=== PATIENT | female | born 1940 | race Caucasian/White ===

== ENCOUNTER 2016-12-17 19:14 | Emergency (ER) | payer MEDICARE, BC ==
[2016-12-17] MEDS ORDERED: ONDANSETRON HCL IV 4 MG/2 ML VIAL IVP ONE (19:18)
--- NOTE | 2016-12-17 19:26 | Emergency Department Record ---
History of Present Illness - General Chief complaint: Vomiting Stated complaint: VOMITING Time Seen by Provider: 12/17/16 19:18 Source: Patient Mode of Arrival: Ambulatory Limitations: No limitations - History of Present Illness Initial comments: 76 yo female presents to ED with a CC of nausea and vomiting symptoms throughout the day. Patient reports intermittent symptoms since November 09, was recent seen and evaluated at [facility] on 12/12/16 for similar symptoms. Patient denies fevers, chills, or urinary symptoms. Patient reports previous appendectomy, denies other abdominal surgeries. Patient denies chest pain or difficulty in breathing symptoms. MD complaint: Nausea, Vomiting Onset/Timin -: Month(s) Associated Abdominal Pain: Yes Location: Diffuse Radiation: None Severity: Moderate Consistency: Intermittent Improves with: None Worsens with: Eating Associated Symptoms: Denies other symptoms - Related Data Previous Rx's Medication Instructions Recorded Cephalexin [Keflex] 500 mg PO TID #21 cap 12/17/16 Ondansetron [Zofran Odt] 4 mg PO Q6H PRN #20 tab.rapdis 12/17/16 Allergies Allergy/AdvReac Type Severity Reaction Status Date / Time doxycycline Allergy Intermediate FLUSHING, Verified 11/13/14 15:03 HIVES niacin Allergy Intermediate FLUSHING, Verified 11/13/14 15:03 HIVES Review of Systems Constitutional: Denies: Chills, Fever, Malaise, Night sweats Eyes: Denies: Eye discharge, Eye pain ENT: Denies: Congestion, Ear pain Respiratory: Denies: Cough, Dyspnea Cardiovascular: Denies: Chest pain, Dyspnea on exertion Endocrine: Denies: Fatigue, Heat or cold intolerance Gastrointestinal: Reports: Abdominal pain, Nausea, Vomiting Genitourinary: Denies: Incontinence, Retention Musculoskeletal: Denies: Arthralgia, Back pain, Gout, Joint swelling Skin: Denies: Bruising, Change in color Neurological: Denies: Abnormal gait, Confusion, Headache, Seizure Psychiatric: Denies: Anxiety Hematological/Lymphatic: Denies: Anemia, Blood Clots Physical Exam - General General Appearance: Alert, Oriented x3, Cooperative, Moderate distress Limitations: No limitations - Head Head exam: Atraumatic, Normocephalic, Normal inspection Head exam detail: negative: Abrasion, Contusion, Spence's sign, General tenderness, Hematoma, Laceration - Eye Eye exam: Normal appearance. negative: Conjunctival injection, Periorbital swelling, Periorbital tenderness, Scleral icterus - ENT Ear exam: negative: Auricular hematoma, Auricular trauma Nasal Exam: negative: Active bleeding, Discharge, Dried blood, Foreign body Mouth exam: negative: Drooling, Laceration, Tongue elevation - Neck Neck exam: Normal inspection. negative: Meningismus, Tenderness - Respiratory Respiratory exam: Normal lung sounds bilaterally. negative: Rales, Respiratory distress, Rhonchi, Stridor - Cardiovascular Cardiovascular Exam: Normal rhythm, Normal heart sounds, Tachycardia - GI/Abdominal GI/Abdominal exam: Soft, Other (beign abdominal examination). negative: Rebound , Rigid, Tenderness - Rectal Rectal exam: Deferred - exam: Deferred - Extremities Extremities exam: Normal inspection. negative: Calf tenderness, Pedal edema, Tenderness - Back Back exam: Denies: CVA tenderness (R), CVA tenderness (L) - Neurological Neurological exam: Alert, Normal gait, Oriented X3 - Psychiatric Psychiatric exam: Normal affect, Normal mood - Skin Skin exam: Normal color. negative: Abrasion Type of lesion: negative: abrasion Course Vital Signs 12/17/16 19:22 Temperature 97.5 F L Pulse Rate [ 120 H Pulse Ox Probe] Respiratory 24 Rate Blood Pressure 149/108 [Left Arm] Pulse Ox 97 - Reevaluation(s) Reevaluation #1: 12/17/16 19:25 [facility] records reviewed: CT Abdomen and Pelvis 12/12/16: No acute intra-abdominal or pelvic process. Reevaluation #2: 12/17/16 19:57 Labs reviewed, Lactic Acid 3.2, labs are otherwise grossly unremarkable for an acute process. Reevaluation #3: 12/17/16 20:20 UA reviewed, mild contamination however 3+ bacteria and Moderate LE, will initiate treatment for possible pyelonephritis with Keflex. Reevaluation #4: 12/17/16 20:52 Patient reassessed and updated on all results, patient has not vomited in the ED and reports that she is feeling better. Patient appears stable for discharge at this time. Medical Decision Making - Lab Data Result diagrams: 12/17/16 19:25 12/17/16 19:25 Disposition Disposition: Discharge Clinical Impression: UTI (urinary tract infection) Qualifiers: Urinary tract infection type: acute cystitis Hematuria presence: with hematuria Qualified Code(s): N30.01 - Acute cystitis with hematuria Nausea & vomiting Qualifiers: Vomiting type: unspecified Vomiting Intractability: unspecified Qualified Code( s): R11.2 - Nausea with vomiting, unspecified Disposition: Home, Self-Care Condition: (2) Stable Instructions: Acute Nausea and Vomiting (ED) Additional Instructions: Return to ED if your symptoms worsen or if you have any concerns. Zofran and Keflex as directed. Follow-up with your family doctor in 1-3 days as directed. Prescriptions: Cephalexin [Keflex] 500 mg PO TID #21 cap Ondansetron [Zofran Odt] 4 mg PO Q6H PRN #20 tab.rapdis PRN Reason: Nausea/Vomiting Forms: Patient Portal Access Time of Disposition: 20:25 Quality - Quality Measures Quality Measures: N/A - Blood Pressure Screening Does Patient Have Any of the Following: No Blood Pressure Classification: Hypertensive Reading Systolic Measurement: 189 Diastolic Measurement: 114 Screening for High Blood Pressure: < First Hypertensive BP, F/U Documented > [ G8950] First Hypertensive Follow-up Interventions: Referral to alternative/primary care provider.
[2016-12-17] MEDS: 0.9 % SODIUM CHLORIDE 1000ML 1,000 ML IV SCH ×2 (19:32→20:27)
[2016-12-17 19:38] LABS: BASO % 0.5 % (0-6); EOS % 1.6 % (0-6); GRAN % 63.1 % (47-80); HEMATOCRIT 44.6 % (35.0-47.0); HEMOGLOBIN 14.9 gm/dl (11.6-16.0); LYMPH % 23.4 % (16-45); MEAN CELL VOLUME 88.5 fl (81-97); MEAN CORPUSCULAR HEMOGLOBIN 29.6 pg (27-33); MEAN CORPUSCULAR HGB CONC 33.4 g/dl (32-36); MEAN PLATELET VOLUME 8.5 fl (7.4-10.4); MONO % 11.4 % (0-9); PLATELET COUNT 213 K/uL (130-400); RED BLOOD COUNT 5.04 M/uL (3.80-5.40); RED CELL DISTRIBUTION WIDTH 13.2 % (11.5-14.5); WHITE BLOOD COUNT W/O DIFF 6.3 K/uL (4.2-12.2)
[2016-12-17 19:46] LABS: ALB/GLOB RATIO 1.5 (1.1-1.8); ALBUMIN 4.8 gm/dL (3.5-5.0); ANION GAP 15.2 (7-16); BILIRUBIN,TOTAL 1.38 mg/dL (0.2-1.3); CARBON DIOXIDE 30.8 mmol/L (22-30); TOTAL PROTEIN 8.1 gm/dL (6.3-8.2)
[2016-12-17 19:56] LABS: URINE APPEARANCE CLEAR; URINE BILIRUBIN SMALL (NEGATIVE); URINE BLOOD NEGATIVE (NEGATIVE); URINE COLOR YELLOW; URINE GLUCOSE (UA) NEGATIVE (NEGATIVE); URINE KETONE TRACE (NEGATIVE); URINE LEUKOCYTE ESTERASE MODERATE (NEGATIVE); URINE NITRITE NEGATIVE (NEGATIVE); URINE UROBILINOGEN 0.2 E.U./dL (0.20 - 1.00)
[2016-12-17] MEDS ORDERED: DIPHENHYDRAMINE HCL IV 50 MG/ML VIAL IVP ONE (19:56)
[2016-12-17] MEDS ORDERED: METOCLOPRAMIDE HCL 10 MG/2 ML VIAL IVP ONE (19:56)
[2016-12-17] MEDS ORDERED: 0.9 % SODIUM CHLORIDE 1000ML 1,000 ML IV SCH (20:00)
[2016-12-17 20:09] LABS: URINE BACTERIA 3+; URINE MUCUS LIGHT
[2016-12-17] MEDS ORDERED: CEPHALEXIN 500 MG CAPSULE PO STA (20:20)
== END 2016-12-17 21:14 | disposition home or self-care (01) ==
LOC: ER 19:14
DX: N30.01 Acute cystitis with hematuria (principal); R11.2 Nausea with vomiting, unspecified
CPT/HCPCS: 99284 ×2; 96374; 96375; 96361; 83605; 83690; 85025; 80053; 81001; J2405; J1200; J2765; J7030

== ENCOUNTER 2017-03-31 16:04 | Emergency (ER) | payer MEDICARE, BC ==
[2017-03-31] MEDS ORDERED: CLONIDINE HCL 0.1 MG TABLET PO ONE (17:33)
[2017-03-31 17:37] LABS: BASO % 0.2 % (0-6); GRAN % 73.7 % (47-80); HEMATOCRIT 37.5 % (35.0-47.0); HEMOGLOBIN 11.9 gm/dl (11.6-16.0); LYMPH % 17.5 % (16-45); MEAN CELL VOLUME 93.8 fl (81-97); MEAN CORPUSCULAR HEMOGLOBIN 29.8 pg (27-33); MEAN CORPUSCULAR HGB CONC 31.7 g/dl (32-36); MEAN PLATELET VOLUME 8.8 fl (7.4-10.4); MONO % 7.6 % (0-9); PLATELET COUNT 115 K/uL (130-400); RED CELL DISTRIBUTION WIDTH 13.1 % (11.5-14.5)
[2017-03-31 17:51] LABS: BLOOD UREA NITROGEN 18 mg/dL (8-23); CREATININE 0.5 mg/dL (0.5-0.9); EST GLOMERULAR FILTRATION RATE > 60 mL/min; TOTAL PROTEIN 6.5 g/dL (6.6-8.7)
[2017-03-31 17:53] LABS: GLUCOSE,RANDOM 121 mg/dL (74-109)
[2017-03-31 17:56] LABS: ALB/GLOB RATIO 1.7 (1.1-1.8); ALBUMIN 4.1 g/dL (4.0-5.0); ALKALINE PHOSPHATASE 65 U/L (35-104); ALT/SGPT 17 U/L (<33); AST/SGOT 19 U/L (10.0-35.0)
[2017-03-31] MEDS ORDERED: KETOROLAC 30 MG/ML VIAL IVP ONE (17:59)
--- NOTE | 2017-03-31 18:09 | Emergency Department Record ---
History of Present Illness - General Chief complaint: Pain Stated complaint: PAIN FROM RT SIDE OF RIBS TO BACK Time Seen by Provider: 03/31/17 17:05 Source: Patient Mode of Arrival: Ambulatory Limitations: No limitations - History of Present Illness Initial comments: pt has significant back pain that wraps around to her chest. she denies injury. she states pain has steadily increased all week and that she cannot get comfortable. MD Complaint: Neck Pain, Other Onset/Timin -: Week(s) History of Same: No Radiation: Other Severity scale (1-10): 7 Quality: Sharp Consistency: Constant Improves with: Nothing Worsens with: Nothing Associated Symptoms: Chest pain, Shortness of breath - Related Data Home Medications Medication Instructions Recorded Confirmed Last Taken Atorvastatin Calcium 40 mg PO QHS 03/31/17 03/31/17 03/30/17 Cyclobenzaprine HCl [Flexeril] 10 mg PO QHS 03/31/17 03/31/17 Unknown Losartan Potassium [Losartan 50 mg PO DAILY 03/31/17 03/31/17 03/31/17 Potassium] Previous Rx's Medication Instructions Recorded Ondansetron [Zofran Odt] 4 mg PO Q6H PRN #20 tab.rapdis 12/17/16 Gabapentin [Neurontin] 100 mg PO Q12HR #20 capsule 03/31/17 Allergies Allergy/AdvReac Type Severity Reaction Status Date / Time doxycycline Allergy Intermediate FLUSHING, Verified 03/31/17 16:39 HIVES niacin Allergy Intermediate FLUSHING, Verified 03/31/17 16:39 HIVES Travel Screening - Travel/Exposure Within Last 30 Days Have you traveled within the last 30 days?: No Review of Systems Reviewed: No additional complaints except as noted below Constitutional: Reports: As per HPI. Denies: Chills, Fever, Malaise, Night sweats, Weakness, Weight change Eyes: Reports: As per HPI. Denies: Eye discharge, Eye pain, Photophobia, Vision change ENT: Reports: As per HPI. Denies: Congestion, Dental pain, Ear pain, Epistaxis , Hearing loss, Throat pain Respiratory: Reports: As per HPI. Denies: Cough, Dyspnea, Hemoptysis, Stridor, Wheezes Cardiovascular: Reports: As per HPI. Denies: Arrhythmia, Chest pain, Dyspnea on exertion, Edema, Murmurs, Orthopnea, Palpitations, Paroxysmal nocturnal dyspnea, Rheumatic Fever, Syncope Endocrine: Reports: As per HPI. Denies: Fatigue, Heat or cold intolerance, Polydipsia, Polyuria Gastrointestinal: Reports: As per HPI. Denies: Abdominal pain, Constipation, Diarrhea, Hematemesis, Hematochezia, Melena, Nausea, Vomiting Genitourinary: Reports: As per HPI. Denies: Abnormal menses, Discharge, Dyspareunia, Dysuria, Frequency, Hematuria, Incontinence, Retention, Urgency Musculoskeletal: Reports: As per HPI. Denies: Arthralgia, Back pain, Gout, Joint swelling, Myalgia, Neck pain Skin: Reports: As per HPI. Denies: Bruising, Change in color, Change in hair/ nails, Lesions, Pruritus, Rash Neurological: Reports: As per HPI. Denies: Abnormal gait, Confusion, Headache, Numbness, Paresthesias, Seizure, Tingling, Tremors, Vertigo, Weakness Psychiatric: Reports: As per HPI. Denies: Anxiety, Auditory hallucinations, Depression, Homicidal thoughts, Suicidal thoughts, Visual hallucinations Hematological/Lymphatic: Reports: As per HPI. Denies: Anemia, Blood Clots, Easy bleeding, Easy bruising, Swollen glands Past Medical History - SOCIAL HISTORY Smoking Status: Never smoker Alcohol Use: Rare Drug Use: None - RESPIRATORY Hx Respiratory Disorders: Yes Hx Asthma: Yes Hx COPD: Yes - CARDIOVASCULAR Hx Cardio Disorders: Yes Hx Hypertension: Yes Comment:: high cholesterol - NEURO Hx Neuro Disorders: Yes Hx Headaches: Yes - GI Hx GI Disorders: Yes Comment:: gastritis - Hx Genitourinary Disorders: No - ENDOCRINE Hx Endocrine Disorders: No - MUSCULOSKELETAL Hx Musculoskeletal Disorders: Yes Hx Arthritis: Yes - PSYCH Hx Psych Problems: No - HEMATOLOGY/ONCOLOGY Hx Hematology/Oncology Disorders: No Family Medical History Any Significant Family History?: No Physical Exam - General General Appearance: Alert, Oriented x3, Cooperative, Mild distress - Head Head exam: Normal inspection - Eye Eye exam: Normal appearance, PERRL, EOMI Pupils: Normal accommodation - ENT ENT exam: Normal exam, Mucous membranes moist, Normal external ear exam, Normal orophraynx Ear exam: Normal external inspection. negative: External canal tenderness Nasal Exam: Normal inspection. negative: Discharge, Sinus tenderness Mouth exam: Normal external inspection, Tongue normal Teeth exam: Normal inspection. negative: Dental caries Throat exam: Normal inspection. negative: Tonsillar erythema, Tonsillar exudate - Neck Neck exam: Normal inspection, Full ROM. negative: Tenderness - Respiratory Respiratory exam: Normal lung sounds bilaterally. negative: Respiratory distress - Cardiovascular Cardiovascular Exam: Regular rate, Normal rhythm, Normal heart sounds - GI/Abdominal GI/Abdominal exam: Soft, Normal bowel sounds. negative: Tenderness - Rectal Rectal exam: Deferred - exam: Deferred - Extremities Extremities exam: Normal inspection, Full ROM, Normal capillary refill. negative: Tenderness - Back Back exam: Reports: Full ROM, Tenderness. Denies: Muscle spasm, Rash noted - Neurological Neurological exam: Alert, CN II-XII intact, Normal gait, Oriented X3 - Psychiatric Psychiatric exam: Normal affect, Normal mood - Skin Skin exam: Dry, Intact, Normal color, Warm Course Vital Signs 03/31/17 03/31/17 16:35 17:32 Temperature 97.6 F Pulse Rate 83 Pulse Rate [ 77 Pulse Ox Probe] Respiratory 16 20 Rate Blood Pressure 188/125 Blood Pressure 213/116 [Left Arm] Pulse Ox 95 96 Medical Decision Making - Lab Data Result diagrams: 03/31/17 17:31 03/31/17 17:31 Lab Results 03/31/17 03/31/17 03/31/17 Range/Units 17:31 17:31 17:31 WBC 5.0 (4.2-12.2) K/uL RBC 4.00 (3.80-5.40) M/uL Hgb 11.9 (11.6-16.0) gm/dl Hct 37.5 (35.0-47.0) % MCV 93.8 (81-97) fl MCH 29.8 (27-33) pg MCHC 31.7 L (32-36) g/dl RDW 13.1 (11.5-14.5) % Plt Count 115 L (130-400) K/uL MPV 8.8 (7.4-10.4) fl Gran % 73.7 (47-80) % Lymphocytes % 17.5 (16-45) % Monocytes % 7.6 (0-9) % Eosinophils % 1.0 (0-6) % Basophils % 0.2 (0-6) % D-Dimer 0.33 (0-0.59) mg/L FEU Sodium 140 (136-145) mmol/L Potassium 3.7 (3.4-4.5) mmol/L Chloride 98 (98-107) mmol/L Carbon Dioxide 32.0 H (22-29) mmol/L Anion Gap 10.0 (7-16) BUN 18 (8-23) mg/dL Creatinine 0.5 (0.5-0.9) mg/dL Estimated GFR > 60 mL/min Random Glucose 121 H (74-109) mg/dL Calcium 9.5 (8.8-10.2) mg/dL Total Bilirubin 0.70 (0.2-1.0) mg/dL AST 19 (10.0-35.0) U/L ALT 17 (<33) U/L Alkaline Phosphatase 65 (35-104) U/L Troponin T < 0.010 (0-0.010) ng/mL Total Protein 6.5 L (6.6-8.7) g/dL Albumin 4.1 (4.0-5.0) g/dL Globulin 2.4 (1.4-4.8) gm/dL Albumin/Globulin Ratio 1.7 (1.1-1.8) Disposition Disposition: Discharge Clinical Impression: Thoracic back pain Qualifiers: Chronicity: acute Back pain laterality: bilateral Qualified Code(s): M54.6 - Pain in thoracic spine Hypertension Qualifiers: Hypertension type: essential hypertension Qualified Code(s): I10 - Essential ( primary) hypertension Disposition: Home, Self-Care Condition: (1) Good Instructions: Thoracic Pain (ED) Additional Instructions: follow up with family doctor. return sooner if worse. recheck blood pressure tomorrow Prescriptions: Gabapentin [Neurontin] 100 mg PO Q12HR #20 capsule Forms: Patient Portal Access Quality - Quality Measures Quality Measures: N/A - Blood Pressure Screening Does Patient Have Any of the Following: No Blood Pressure Classification: Hypertensive Reading Systolic Measurement: 188 Diastolic Measurement: 125 Screening for High Blood Pressure: < First Hypertensive BP, F/U Documented > [ G8950] First Hypertensive Follow-up Interventions: Follow-up with rescreen GT 1 day and LT 4 weeks. Second Hypertensive Follow-up Interventions: Referral to alternative/primary care provider.
--- NOTE | 2017-04-01 20:24 | RADIOLOGY REPORT ---
EXAM: CHEST 2 VIEWS HISTORY: BACK PAIN RADIATING TO MID RIBS BILATERALLY, ACUTE. COMPARISON: None. TECHNIQUE: Two-view chest. FINDINGS: The lungs are clear. Cardiac silhouette is mildly enlarged. Diaphragm is unremarkable. Mild to moderate dextroconvex scoliosis of the thoracic spine. IMPRESSION: CARDIOMEGALY. NO ACUTE INTRATHORACIC PROCESS. JOB NUMBER: [id number] [facility]TDD
--- NOTE | 2017-04-01 20:28 | RADIOLOGY REPORT ---
EXAM: THORACIC SPINE HISTORY: ACUTE MID BACK PAIN RADIATING TO BOTH SIDES OF THE CHEST. COMPARISON: Chest x-ray same day. Thoracic spine radiograph 07/12/16. TECHNIQUE: Four-view thoracic spine. FINDINGS: Osteopenia. Mild to moderate dextroconvex scoliosis of the thoracic spine. No fracture. Mild disc disease throughout. IMPRESSION: 1. NO ACUTE PROCESS OF THE THORACIC SPINE WITH NO CHANGE. 2. OSTEOPENIA. 3. MILD TO MODERATE SCOLIOSIS OF THE THORACIC SPINE. JOB NUMBER: [id number] [facility]
== END 2017-03-31 19:48 | disposition home or self-care (01) ==
LOC: ER 16:04
DX: M54.6 Pain in thoracic spine (principal); R07.81 Pleurodynia; J44.9 Chronic obstructive pulmonary disease, unspecified; M54.2 Cervicalgia; R06.02 Shortness of breath; I10 Essential (primary) hypertension
CPT/HCPCS: 99284 ×2; 96374; 85025; 80053; 84484; 85379; 71020; 72072; J1885

== ENCOUNTER 2017-04-26 07:06 | Day surgery (SDC) | payer MEDICARE, BC ==
[2017-04-26] MEDS ORDERED: BUPIVACAINE 0.25% MPF 30ML VIAL IVP ONE (07:07)
[2017-04-26] MEDS ORDERED: 0.9 % SODIUM CHLORIDE 10 ML VIAL IVP ONE (07:07)
[2017-04-26] MEDS ORDERED: PROPOFOL 10 MG/ML VIAL IV ONE (07:07)
[2017-04-26] MEDS ORDERED: BUPIVACAINE 0.5% (5MG/ML) PF 30ML VIAL IVP ONE (07:07)
[2017-04-26] MEDS ORDERED: MIDAZOLAM HCL 2MG/2ML VIAL IV ONE (07:07)
[2017-04-26] MEDS ORDERED: FENTANYL PF 100MCG/2ML VIAL IV ONE (07:07)
[2017-04-26] MEDS ORDERED: LIDOCAINE 1% W/EPI 1:200,000 MPF 30ML SQ ONE (07:07)
[2017-04-26] MEDS ORDERED: BUPIVACAINE 0.75% W/EPI MPF 30ML VIAL IVP ONE (07:07)
[2017-04-26] MEDS ORDERED: DEXAMETHASONE PRESERVATIVE FREE 10MG/ML VIAL IV ONE (07:07)
[2017-04-26] MEDS ORDERED: LIDOCAINE 2% MDV (20MG/ML) 20ML VIAL IV ONE (07:07)
[2017-04-26] MEDS ORDERED: HYDROCODONE/APAP 7.5/325MG TABLET PO ONE (07:07)
--- NOTE | 2017-04-26 15:21 | Operative Note - [place] ---
DATE OF SURGERY: 04/26/17 PREOPERATIVE DIAGNOSES: 1. CERVICAL RADICULITIS, ICD-10 CODE = M54.13. 2. 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 OPERATION: 1. FLUOROSCOPICALLY-GUIDED CERVICAL EPIDURAL INJECTION AT C6-7. 2. INFILTRATIONAL BLOCK BILATERAL GREATER OCCIPITAL NERVES. SURGEON: BRITTANY RICHARDS D.O. ANESTHESIA: LOCAL SEDATION. ANESTHESIA PROVIDER: KILO CHUN C.R.N.A. INDICATION: This patient presents with pain, which is head and neck. Examination shows tenderness of the cervical spine. Range of motion does cause pain moving into the shoulder bilaterally. There is also tenderness along the suboccipital. Diagnostic studies show a 4-5, 5-6, and 6-7 disc space abnormality. PROCEDURE: Intravenous line, vital sign monitoring, IV sedation, prepped and draped with sterile technique. The epidural interspace at 4-5 and 5-6 could not be identified. 6-7 marked, infiltrated, and an #18-gauge Tuohy needle with loss- of-resistance. 5 mL of 0.125% Marcaine with Dexamethasone injected. Suboccipital rim prepped then using a 25-gauge needle, the greater occipital was blocked, first left then right, with 0.5% Marcaine and Dexamethasone. All areas cleaned, topical antibiotic, and sterile dressing was applied. We will monitor and evaluate. cc: Dr. Jose G Li JOB NUMBER: [id number] [facility]TDD
== END 2017-04-26 09:30 | disposition home or self-care (01) ==
LOC: SUR 07:06
PROVIDERS: ATTEND Pain Medicine Interventional Pain Medicine
DX: M54.13 Radiculopathy, cervicothoracic region (principal); M54.81 Occipital neuralgia; I10 Essential (primary) hypertension; E78.00 Pure hypercholesterolemia, unspecified
CPT/HCPCS: 62321; 64405; 01992; J1100; J3010; J3490

== ENCOUNTER 2017-06-03 18:41 | Emergency (ER) | payer MEDICARE, BC ==
[2017-06-03] MEDS ORDERED: CLONIDINE HCL 0.1 MG TABLET PO ONE (19:11)
--- NOTE | 2017-06-03 19:15 | Emergency Department Record ---
History of Present Illness - General Chief Complaint: Hypertension Stated Complaint: HIGH BP Time Seen by Provider: 06/03/17 19:01 Source: Patient Mode of Arrival: Ambulatory Limitations: No limitations - History of Present Illness Initial Comments: 77 yo female presents to ED for evaluation of persistently elevated blood pressure x 5 months. Patient reports seeing her PCP 3 days ago for lower extremity edema, she was taken off Losartan and Clonidine and started on Triamterene for her BP/edema symptoms. Patient denies chest pain, focal weakness, or numbness/tingling, but does report that she feels lightheaded on examination. MD Complaint: Dizziness Onset/Timin -: Month(s) Timing: Unsure Description: Lightheadedness History of Same: Yes History of Trauma: No Severity: Mild Improves With: Nothing Worsens With: Nothing - [place] Coma Scale Eye Response: (4) Open spontaneously Motor Response: (6) Obeys commands Verbal Response: (5) Oriented Ashley Total: 15 - Related Data Home Medications Medication Instructions Recorded Confirmed Last Taken Clonidine HCl [Clonidine HCl] 0.1 mg PO ASDIR 06/03/17 06/03/17 06/03/17 Triamterene/Hydrochlorothiazid 1 tab PO DAILY 06/03/17 06/03/17 06/03/17 [Triamterene-Hctz 75-50 mg Tab] Previous Rx's Medication Instructions Recorded Ondansetron [Zofran Odt] 4 mg PO Q6H PRN #20 tab.rapdis 12/17/16 Gabapentin [Neurontin] 100 mg PO Q12HR #20 capsule 03/31/17 Allergies Allergy/AdvReac Type Severity Reaction Status Date / Time doxycycline Allergy Intermediate FLUSHING, Verified 06/03/17 18:46 HIVES niacin Allergy Intermediate FLUSHING, Verified 06/03/17 18:46 HIVES Travel Screening - Travel/Exposure Within Last 30 Days Have you traveled within the last 30 days?: No - Travel/Exposure Within Last Year Have you traveled outside the [place] in the last year?: No - Additonal Travel Details Have you been exposed to anyone with a communicable illness?: No - Travel Symptoms Symptom Screening: None Review of Systems Constitutional: Denies: Chills, Fever, Malaise, Night sweats Eyes: Denies: Eye discharge, Eye pain ENT: Denies: Congestion, Ear pain, Epistaxis Respiratory: Denies: Cough, Dyspnea Cardiovascular: Denies: Chest pain, Dyspnea on exertion Endocrine: Denies: Fatigue, Heat or cold intolerance Gastrointestinal: Denies: Abdominal pain, Nausea, Vomiting Genitourinary: Denies: Incontinence, Retention Musculoskeletal: Denies: Arthralgia, Back pain, Gout, Joint swelling Skin: Denies: Bruising, Change in color Neurological: Reports: Headache, Vertigo. Denies: Abnormal gait, Confusion, Tingling Psychiatric: Denies: Anxiety Hematological/Lymphatic: Denies: Anemia, Blood Clots Past Medical History - SOCIAL HISTORY Smoking Status: Never smoker Alcohol Use: Rare Drug Use: None - RESPIRATORY Hx Respiratory Disorders: Yes Hx Dyspnea: Yes Hx Sleep Apnea: Yes Hx of CPAP: No - CARDIOVASCULAR Hx Cardio Disorders: Yes Hx Hypertension: Yes (on meds fair control) Comment:: high cholesterol. enlarged heart - NEURO Hx Neuro Disorders: Yes Hx Headaches: Yes (daily related neck problems) - GI Hx GI Disorders: Yes Hx Reflux: Yes - Hx Genitourinary Disorders: Yes Hx Bladder Problem: Yes (leaking wears a pad) - ENDOCRINE Hx Endocrine Disorders: No - MUSCULOSKELETAL Hx Musculoskeletal Disorders: Yes Hx Back Injury: Yes Hx Fibromyalgia: Yes - PSYCH Hx Psych Problems: Yes Hx Depression: Yes - HEMATOLOGY/ONCOLOGY Hx Hematology/Oncology Disorders: Yes Hx Bruising: Yes Hx Blood Transfusions: Yes Family Medical History Any Significant Family History?: Yes Hx Alcohol Use: Father, Mother, Brother/Sister Hx Anxiety: Children Hx Cancer: Grandparents Hx Depression: Mother Hx Diabetes: Father Hx HTN: Father, Mother, Grandparents Hx Kidney Disease: Brother/Sister, Grandparents Hx Liver Disease: Mother Physical Exam - General General Appearance: Alert, Oriented x3, Cooperative, Mild distress Limitations: No limitations - Head Head exam: Atraumatic, Normocephalic, Normal inspection Head exam detail: negative: Abrasion, Contusion, Spence's sign, General tenderness, Hematoma, Laceration - Eye Eye exam: Normal appearance. negative: Conjunctival injection, Periorbital swelling, Periorbital tenderness, Scleral icterus - ENT Ear exam: negative: Auricular hematoma, Auricular trauma Nasal Exam: negative: Active bleeding, Discharge, Dried blood Mouth exam: negative: Drooling, Laceration, Tongue elevation - Neck Neck exam: Normal inspection. negative: Meningismus, Tenderness - Respiratory Respiratory exam: Normal lung sounds bilaterally. negative: Respiratory distress, Rhonchi, Stridor, Wheezes - Cardiovascular Cardiovascular Exam: Regular rate, Normal rhythm, Normal heart sounds - GI/Abdominal GI/Abdominal exam: Soft. negative: Rebound, Rigid, Tenderness - Rectal Rectal exam: Deferred - exam: Deferred - Extremities Extremities exam: Normal inspection. negative: Calf tenderness, Pedal edema, Tenderness - Back Back exam: Denies: CVA tenderness (R), CVA tenderness (L) - Neurological Neurological exam: Alert, CN II-XII intact, Oriented X3. negative: Motor sensory deficit - Psychiatric Psychiatric exam: Anxious - Skin Skin exam: Normal color. negative: Abrasion Type of lesion: negative: abrasion Course Vital Signs 06/03/17 06/03/17 18:51 18:56 Temperature 97.8 F 97.8 F Pulse Rate [ 92 H Pulse Ox Probe] Respiratory 20 20 Rate Blood Pressure 215/134 [Left Arm] Pulse Ox 97 97 - Reevaluation(s) Reevaluation #1: 06/03/17 19:15 Patient was seen and examined, will obtain EKG/Laboratory studies, restart Clonidine in the ED and re-evaluate. Reevaluation #2: 06/03/17 19:26 EKG: NSR 82 Normal axis, normal intervals No acute ST-T wave changes are present Reevaluation #3: 06/03/17 19:54 Labs reviewed and are grossly unremarkable for an acute process. Repeat BP 146/104, patient reports that her dizziness symptoms are improved. Will restart the patient's Clonidine with instructions for follow-up- Monday with her PCP for repeat blood pressure evaluation. Medical Decision Making - Lab Data Result diagrams: 06/03/17 19:20 06/03/17 19:20 Disposition Disposition: Discharge Clinical Impression: Hypertension Qualifiers: Hypertension type: unspecified Qualified Code(s): I10 - Essential (primary) hypertension Disposition: Home, Self-Care Condition: (2) Stable Instructions: Hypertension (ED) Additional Instructions: Return to ED if your symptoms worsen or if you have any concerns. Restart your Clonidine as previously prescribed. Follow-up with your family doctor Monday as directed. Forms: Patient Portal Access Time of Disposition: 19:59 Quality - Quality Measures Quality Measures: N/A - Blood Pressure Screening Does Patient Have Any of the Following: Active Dx of HTN Blood Pressure Classification: Hypertensive Reading Systolic Measurement: 179 Diastolic Measurement: 142 Screening for High Blood Pressure: Patient Exclusion, Hx of HTN [G9744]
[2017-06-03 19:26] LABS: BASO % 0.6 % (0-6); EOS % 2.9 % (0-6); GRAN % 55.3 % (47-80); HEMOGLOBIN 12.6 gm/dl (11.6-16.0); LYMPH % 28.6 % (16-45); MEAN CELL VOLUME 92.2 fl (81-97); MEAN CORPUSCULAR HGB CONC 31.5 g/dl (32-36); MONO % 12.6 % (0-9); PLATELET COUNT 130 K/uL (130-400); RED BLOOD COUNT 4.34 M/uL (3.80-5.40); RED CELL DISTRIBUTION WIDTH 13.3 % (11.5-14.5); WHITE BLOOD COUNT W/O DIFF 4.9 K/uL (4.2-12.2)
[2017-06-03 19:48] LABS: ALB/GLOB RATIO 1.7 (1.1-1.8); ALBUMIN 4.5 g/dL (4.0-5.0); ALKALINE PHOSPHATASE 75 U/L (35-104); ALT/SGPT 15 U/L (<33); AST/SGOT 15 U/L (10.0-35.0); BLOOD UREA NITROGEN 17 mg/dL (8-23); CREATININE 0.5 mg/dL (0.5-0.9); EST GLOMERULAR FILTRATION RATE > 60 mL/min; GLUCOSE,RANDOM 108 mg/dL (74-109); TOTAL PROTEIN 7.2 g/dL (6.6-8.7)
== END 2017-06-03 20:09 | disposition home or self-care (01) ==
LOC: ER 18:41
DX: I10 Essential (primary) hypertension (principal); R42 Dizziness and giddiness
CPT/HCPCS: 80053; 85025; 93005; 93010; 99284

== ENCOUNTER 2018-03-25 20:29 | Emergency (ER) | payer MEDICARE, BC ==
--- NOTE | 2018-03-25 20:45 | Emergency Department Record ---
History of Present Illness - General Chief complaint: Lower Extremity Pain Stated complaint: POSS BLOOD CLOT Time Seen by Provider: 03/25/18 20:39 Source: Patient Mode of Arrival: Wheelchair Limitations: No limitations - History of Present Illness Initial comments: 77 yo female presents to ED for evaluation of progressive swelling and pain to the LLE for the past 2-3 weeks. Patient reports a history of DVT approximately 10 years ago, reports that she was not treated with anticoagulation medications at that time. Patient denies injury, fevers, redness, numbness, or tingling symptoms. MD Complaint: Extremity swelling Onset/Timin -: Week(s) Location: Left History of Same: Yes Quality: Aching Consistency: Constant Improves with: Elevation Worsens with: Walking Associated Symptoms: Denies other symptoms - Related Data Previous Rx's Medication Instructions Recorded Ondansetron [Zofran Odt] 4 mg PO Q6H PRN #20 tab.rapdis 12/17/16 Gabapentin [Neurontin] 100 mg PO Q12HR #20 capsule 03/31/17 Allergies Allergy/AdvReac Type Severity Reaction Status Date / Time niacin Allergy Intermediate FLUSHING, Verified 06/03/17 18:46 HIVES doxycycline AdvReac Intermediate FLUSHING, Verified 03/25/18 20:34 HIVES ibuprofen AdvReac blood Verified 03/25/18 20:34 count drops Review of Systems Constitutional: Denies: Chills, Fever, Malaise, Night sweats Eyes: Denies: Eye discharge, Eye pain ENT: Denies: Congestion, Ear pain, Epistaxis Respiratory: Denies: Cough, Dyspnea Cardiovascular: Denies: Chest pain, Dyspnea on exertion Endocrine: Denies: Fatigue, Heat or cold intolerance Gastrointestinal: Denies: Abdominal pain, Nausea, Vomiting Genitourinary: Denies: Incontinence, Retention Musculoskeletal: Reports: Myalgia. Denies: Arthralgia, Back pain Skin: Denies: Bruising, Change in color Neurological: Denies: Abnormal gait, Confusion, Headache, Seizure Psychiatric: Denies: Anxiety Hematological/Lymphatic: Reports: Blood Clots. Denies: Anemia Past Medical History - SOCIAL HISTORY Smoking Status: Never smoker Alcohol Use Comment: wine cooler - RESPIRATORY Hx Respiratory Disorders: Yes Hx Dyspnea: Yes Hx Sleep Apnea: Yes Hx of CPAP: No - CARDIOVASCULAR Hx Cardio Disorders: Yes Hx Hypertension: Yes (on meds fair control) Comment:: high cholesterol. enlarged heart - NEURO Hx Neuro Disorders: Yes Hx Headaches: Yes (daily related neck problems) - GI Hx GI Disorders: Yes Hx Reflux: Yes - Hx Genitourinary Disorders: Yes Hx Bladder Problem: Yes (leaking wears a pad) - ENDOCRINE Hx Endocrine Disorders: No - MUSCULOSKELETAL Hx Musculoskeletal Disorders: Yes Hx Arthritis: Yes Hx Back Injury: Yes Hx Fibromyalgia: Yes - PSYCH Hx Psych Problems: Yes Hx Depression: Yes - HEMATOLOGY/ONCOLOGY Hx Hematology/Oncology Disorders: Yes Hx Bruising: Yes Hx Blood Transfusions: Yes Family Medical History Hx Alcohol Use: Father, Mother, Brother/Sister Hx Anxiety: Children Hx Cancer: Grandparents Hx Depression: Mother Hx Diabetes: Father Hx HTN: Father, Mother, Grandparents Hx Kidney Disease: Brother/Sister, Grandparents Hx Liver Disease: Mother Physical Exam - General General Appearance: Alert, Oriented x3, Cooperative Limitations: No limitations - Head Head exam: Atraumatic, Normocephalic, Normal inspection Head exam detail: negative: Abrasion, Contusion, Spence's sign, General tenderness, Hematoma, Laceration - Eye Eye exam: Normal appearance. negative: Conjunctival injection, Periorbital swelling, Periorbital tenderness, Scleral icterus - ENT Ear exam: negative: Auricular hematoma, Auricular trauma Nasal Exam: negative: Active bleeding, Discharge, Dried blood, Foreign body Mouth exam: negative: Drooling, Laceration, Muffled voice, Tongue elevation - Neck Neck exam: Normal inspection. negative: Meningismus, Tenderness - Respiratory Respiratory exam: Normal lung sounds bilaterally. negative: Rales, Respiratory distress, Rhonchi, Stridor - Cardiovascular Cardiovascular Exam: Regular rate, Normal rhythm, Normal heart sounds Peripheral Pulses: 3+: Dorsalis Pedis (R), Dorsalis Pedis (L) - GI/Abdominal GI/Abdominal exam: Soft. negative: Rebound, Rigid, Tenderness - Rectal Rectal exam: Deferred - exam: Deferred - Extremities Extremities exam: Calf tenderness, Pedal edema, Other (STS and edema to the LLE> RLE, strong DPP bilaterally). negative: Tenderness - Back Back exam: Denies: CVA tenderness (R), CVA tenderness (L) - Neurological Neurological exam: Alert, Normal gait, Oriented X3 - Psychiatric Psychiatric exam: Normal affect, Normal mood - Skin Skin exam: Normal color. negative: Abrasion Type of lesion: negative: abrasion Course Vital Signs 03/25/18 20:34 Temperature 97.8 F Pulse Rate [ 90 Pulse Ox Probe] Respiratory 20 Rate Blood Pressure 184/114 [Left Arm] Pulse Ox 96 - Reevaluation(s) Reevaluation #1: 03/25/18 20:44 Case was discussed with Dr. Menard at [facility], will accept transfer at this time for doppler of the LLE. Disposition Disposition: Transfer Clinical Impression: Acute pain of left lower extremity Transfer To: [facility] Reason For Transfer: US Doppler LLE Accepting Physician: Derian Time Discussed w/Accepting Physician: 20:45 Condition: (2) Stable Time of Disposition: 20:45 Quality - Quality Measures Quality Measures: N/A - Blood Pressure Screening Does Patient Have Any of the Following: Active Dx of HTN Blood Pressure Classification: Hypertensive Reading Systolic Measurement: 184 Diastolic Measurement: 114 Screening for High Blood Pressure: Patient Exclusion, Hx of HTN [G9744]
== END 2018-03-25 20:50 | disposition short-term general hospital (02) ==
LOC: ER 20:29
DX: M79.662 Pain in left lower leg (principal); R60.0 Localized edema; I10 Essential (primary) hypertension
CPT/HCPCS: 99283

== ENCOUNTER 2018-08-15 06:06 | Day surgery (SDC) | payer MEDICARE, BC ==
[2018-08-15] MEDS ORDERED: LIDOCAINE 2% MDV (20MG/ML) 20ML VIAL IV ONE (06:07)
[2018-08-15] MEDS ORDERED: MIDAZOLAM HCL 2MG/2ML VIAL IV ONE (06:07)
[2018-08-15] MEDS ORDERED: PROPOFOL 10 MG/ML VIAL IV ONE (06:07)
[2018-08-15] MEDS ORDERED: FENTANYL PF 100MCG/2ML VIAL IV ONE (06:07)
[2018-08-15] MEDS ORDERED: RINGERS SOLUTION,LACTATED 1,000 ML IV ONE ×2 (06:46→08:10)
[2018-08-15] MEDS ORDERED: DEXAMETHASONE PRESERVATIVE FREE 10MG/ML VIAL SQ ONE (07:54)
[2018-08-15] MEDS ORDERED: BUPIVACAINE 0.5% W/EPI MPF 30 ML VIAL SQ ONE (07:54)
[2018-08-15] MEDS ORDERED: LIDOCAINE 1% W/EPI 1:100,000 MDV 20 ML VIAL SQ ONE (07:54)
[2018-08-15] MEDS ORDERED: HYDROCODONE/APAP 7.5/325MG TABLET PO ONE (08:31)
--- NOTE | 2018-08-16 09:11 | Operative Note ---
DATE OF SERVICE: 08/15/2018. DATE OF SURGERY: 08/15/2018. PRIMARY: Jose G Alex DO and CARMELITA [place]. PREOPERATIVE DIAGNOSIS: Cervical spondylosis without myelopathy, ICD-10 Code 947.812, left. OPERATION: Left cervical rhizotomy, C3-4, 4-5, 5-6, 6-7. SURGEON: Fazal Calzada DO. ANESTHESIA: Local sedation. ANESTHESIA PROVIDER: Jethro Kwon CRNA. INDICATION: This patient presents with left-sided neck pain. Diagnostic studies show multilevel diffuse spondylitic change. A previous facet series 75+% pain control. Due to failure of therapy, success with facet series, patient presents today for rhizotomy for more long-term relief. PROCEDURE: Intravenous line, vital sign monitoring, IV sedation, prep, drape, sterile technique. Under imaging, cervical facets in the area of pain on the left were identified and marked at 3-4, 4-5, 5-6, 6-7. Each one of these points on the skin infiltrated. She was positioned prone. Stimulation trials were conducted. Rhizotomy performed, 80 degrees, 90 seconds at each site. Local anti-inflammatory in the sites. Topical antibiotic and sterile dressing applied. Will monitor and evaluate. CC: DO Jose G Jacobsen DO April Adado, PA [facility]ITAL[facility]
== END 2018-08-15 08:50 | disposition home or self-care (01) ==
LOC: SUR 06:06
PROVIDERS: ATTEND Pain Medicine Interventional Pain Medicine
DX: M47.812 Spondylosis without myelopathy or radiculopathy, cervical region (principal); J44.9 Chronic obstructive pulmonary disease, unspecified; I10 Essential (primary) hypertension; E78.00 Pure hypercholesterolemia, unspecified; M79.7 Fibromyalgia; K21.9 Gastro-esophageal reflux disease without esophagitis; J45.909 Unspecified asthma, uncomplicated; G47.33 Obstructive sleep apnea (adult) (pediatric)
CPT/HCPCS: J7120

== ENCOUNTER 2018-08-19 19:38 | Emergency (ER) | payer MEDICARE, BC ==
[2018-08-19] MEDS ORDERED: ONDANSETRON HCL IV 4 MG/2 ML VIAL IVP ONE (20:04)
--- NOTE | 2018-08-19 20:07 | Emergency Department Record ---
History of Present Illness - General Chief complaint: Nausea, Vomiting, Diarrhea Stated complaint: WEAKNESS,ABDOMINAL PAIN Time Seen by Provider: 08/19/18 20:03 Source: Patient Mode of Arrival: Ambulatory Limitations: No limitations - History of Present Illness Initial comments: 78 yo female presents to ED for evaluation of nausea symptoms and decreased appetite following a rhizotomy 5 days ago. Patient reports that her symptoms began 4 days ago, denies associated abdominal pain symptoms. Patient denies fevers, chills, numbness or tingling to the upper extremities following her procedure, denies redness or swelling to the injection site. Patient did take Phenergan earlier today without improvement. Patient reports a history of "renal failure" in the past, was concerned about her kidney function. MD complaint: Nausea Onset/Timin -: Days(s) Associated Abdominal Pain: No Radiation: None Severity: Moderate Consistency: Constant Improves with: None Worsens with: None Associated Symptoms: Denies other symptoms - Related Data Home Medications Medication Instructions Recorded Confirmed Last Taken Fluticasone/Vilanterol [Breo 1 puff INH ASDIR 08/19/18 08/19/18 08/17/18 Ellipta 200-25 Mcg INH] Hydrocodone/Acetaminophen 1 tab PO Q6HR PRN 08/19/18 08/19/18 08/17/18 [Hydrocodone/Acetaminophen 5mg/325mg] Previous Rx's Medication Instructions Recorded Gabapentin [Neurontin] 100 mg PO Q12HR #20 capsule 03/31/17 Cephalexin [Keflex] 500 mg PO TID #20 cap 08/19/18 Ondansetron [Zofran Odt] 4 mg PO Q8H PRN #15 tab.rapdis 08/19/18 Potassium Bicarbonate/Cit AC 25 meq PO DAILY #10 tabef 08/19/18 [K-Lyte] Allergies Allergy/AdvReac Type Severity Reaction Status Date / Time niacin Allergy Intermediate FLUSHING, Verified 08/19/18 19:54 HIVES doxycycline AdvReac Intermediate FLUSHING, Verified 08/19/18 19:54 HIVES ibuprofen AdvReac blood Verified 08/19/18 19:54 count drops Review of Systems Constitutional: Denies: Chills, Fever, Malaise, Night sweats Eyes: Denies: Eye discharge, Eye pain ENT: Denies: Congestion, Ear pain, Epistaxis Respiratory: Denies: Cough, Dyspnea Cardiovascular: Denies: Chest pain, Dyspnea on exertion Endocrine: Denies: Fatigue, Heat or cold intolerance Gastrointestinal: Reports: Nausea. Denies: Abdominal pain, Constipation, Vomiting Genitourinary: Denies: Incontinence, Retention Musculoskeletal: Denies: Arthralgia, Back pain Skin: Denies: Bruising, Change in color Neurological: Denies: Abnormal gait, Confusion, Headache, Seizure Psychiatric: Denies: Anxiety Hematological/Lymphatic: Denies: Anemia, Blood Clots Past Medical History - SOCIAL HISTORY Smoking Status: Never smoker Alcohol Use Comment: wine cooler - RESPIRATORY Hx COPD: Yes - CARDIOVASCULAR Hx Cardio Disorders: Yes Hx Deep Vein Thrombosis: Yes Hx Hypertension: Yes (on meds fair control) Comment:: high cholesterol. enlarged heart - NEURO Hx Neuro Disorders: Yes Hx Dizziness: Yes (occass) Hx Headaches: Yes (daily related neck problems) - GI Hx Reflux: Yes - Hx Genitourinary Disorders: Yes Hx Bladder Problem: Yes (leaking wears a pad) Hx Renal Disease: Yes (SOME DEFICENCY HAS NOT BEEN REFERRED TO DIRECTOR REVENUE) - ENDOCRINE Hx Endocrine Disorders: No - MUSCULOSKELETAL Hx Musculoskeletal Disorders: Yes Hx Arthritis: Yes Hx Back Injury: Yes Hx Fibromyalgia: Yes - PSYCH Hx Psych Problems: Yes Hx Depression: Yes - HEMATOLOGY/ONCOLOGY Hx Hematology/Oncology Disorders: Yes Hx Bruising: Yes Hx Blood Transfusions: Yes Hx Blood Transfusion Reaction: No Family Medical History Hx Alcohol Use: Father, Mother, Brother/Sister Hx Anxiety: Children Hx Cancer: Grandparents Hx Depression: Mother Hx Diabetes: Father Hx HTN: Father, Mother, Grandparents Hx Kidney Disease: Brother/Sister, Grandparents Hx Liver Disease: Mother Physical Exam - General General Appearance: Alert, Oriented x3, Cooperative, Mild distress Limitations: No limitations - Head Head exam: Atraumatic, Normocephalic, Normal inspection Head exam detail: negative: Abrasion, Contusion, Spence's sign, General tenderness, Hematoma, Laceration - Eye Eye exam: Normal appearance. negative: Conjunctival injection, Periorbital swelling, Periorbital tenderness, Scleral icterus - ENT Ear exam: negative: Auricular hematoma, Auricular trauma Nasal Exam: negative: Active bleeding, Discharge, Dried blood, Foreign body Mouth exam: negative: Drooling, Laceration, Muffled voice, Tongue elevation - Neck Neck exam: Normal inspection. negative: Meningismus, Tenderness - Respiratory Respiratory exam: Normal lung sounds bilaterally. negative: Rales, Respiratory distress, Rhonchi, Stridor - Cardiovascular Cardiovascular Exam: Regular rate, Normal rhythm, Normal heart sounds - GI/Abdominal GI/Abdominal exam: Soft. negative: Rebound, Rigid, Tenderness - Rectal Rectal exam: Deferred - exam: Deferred - Extremities Extremities exam: Normal inspection. negative: Pedal edema, Tenderness - Back Back exam: Denies: CVA tenderness (R), CVA tenderness (L) - Neurological Neurological exam: Alert, Normal gait, Oriented X3 - Psychiatric Psychiatric exam: Normal affect, Normal mood - Skin Skin exam: Normal color. negative: Abrasion Type of lesion: negative: abrasion Course - Reevaluation(s) Reevaluation #1: 08/19/18 21:57 Laboratory studies were reviewed and are grossly unremarkable except for potqassium level of 2.8. 50 meq ordered to be given orally in the ED. Patient is attempting to give urine sample at this time. Patient reports that her nausea symptoms are improved, reports however that her chronic neck pain symptoms are worsening. Tramadol ordered for the patient. Reevaluation #2: 08/19/18 22:25 UA was reviewed: 0-2 RBCs 10-15 WBCs 0-2 Epithelial cells 1+ Bacteria Patient was updated on all results, will initiate treatment with 20 meq potassium daily and Keflex as directed for treatment of her UTI. Will have the patient's potassium rechecked 08/[address] Alex. Patient appears stable for discharge at this time. Medical Decision Making - Lab Data Result diagrams: 08/19/18 20:30 08/19/18 20:30 Disposition Disposition: Discharge Clinical Impression: Hypokalemia, Nausea UTI (urinary tract infection) Qualifiers: Urinary tract infection type: site unspecified Hematuria presence: without hematuria Qualified Code(s): N39.0 - Urinary tract infection, site not specified Disposition: Home, Self-Care Condition: (2) Stable Instructions: Hypokalemia (ED) Additional Instructions: Return to ED if your symptoms worsen or if you have any concerns. Keflex, Zofran, and Potassium as directed. Follow-up with Dr. Alex in 3-5 days as directed. Prescriptions: Cephalexin [Keflex] 500 mg PO TID #20 cap Ondansetron [Zofran Odt] 4 mg PO Q8H PRN #15 tab.rapdis PRN Reason: Nausea/Vomiting Potassium Bicarbonate/Cit AC [K-Lyte] 25 meq PO DAILY #10 tabef Forms: Patient Portal Access Time of Disposition: 22:00 Quality - Quality Measures Quality Measures: N/A - Blood Pressure Screening Does Patient Have Any of the Following: Active Dx of HTN Blood Pressure Classification: Hypertensive Reading Systolic Measurement: 165 Diastolic Measurement: 101 Screening for High Blood Pressure: Patient Exclusion, Hx of HTN [G9744]
[2018-08-19] MEDS ORDERED: 0.9 % SODIUM CHLORIDE 1000ML 1,000 ML IV SCH (20:15)
[2018-08-19 20:42] LABS: HEMOGLOBIN 13.3 gm/dl (11.6-16.0); MEAN CELL VOLUME 92.1 fl (81-97); MEAN CORPUSCULAR HEMOGLOBIN 29.2 pg (27-33); MEAN CORPUSCULAR HGB CONC 31.7 g/dl (32-36); MEAN PLATELET VOLUME 8.6 fl (7.4-10.4); PLATELET COUNT 153 K/uL (130-400); RED BLOOD COUNT 4.56 M/uL (3.80-5.40); RED CELL DISTRIBUTION WIDTH 14.3 % (11.5-14.5); WHITE BLOOD COUNT W/O DIFF 11.8 K/uL (4.2-12.2)
[2018-08-19 20:52] LABS: BLOOD UREA NITROGEN 19 mg/dL (8-23); CREATININE 0.8 mg/dL (0.5-0.9); EST GLOMERULAR FILTRATION RATE > 60 mL/min
[2018-08-19 20:53] LABS: LIPASE 9 U/L (13-60); TOTAL PROTEIN 7.5 g/dL (6.6-8.7)
[2018-08-19 20:55] LABS: GLUCOSE,RANDOM 128 mg/dL (74-109)
[2018-08-19 20:57] LABS: ALB/GLOB RATIO 1.1 (1.1-1.8); ALT/SGPT 27 U/L (<33); AST/SGOT 27 U/L (10.0-35.0)
[2018-08-19 20:58] LABS: ALKALINE PHOSPHATASE 124 U/L (35-104)
[2018-08-19] MEDS ORDERED: POTASSIUM BICARB./CIT AC 25 MEQ EFF.TAB PO STA (21:03)
[2018-08-19] MEDS ORDERED: TRAMADOL HCL 50 MG TABLET PO ONE (21:57)
[2018-08-19 22:04] LABS: URINE APPEARANCE SL CLOUDY; URINE BILIRUBIN NEGATIVE (NEGATIVE); URINE BLOOD NEGATIVE (NEGATIVE); URINE COLOR YELLOW; URINE GLUCOSE (UA) NEGATIVE (NEGATIVE); URINE KETONE TRACE (NEGATIVE); URINE LEUKOCYTE ESTERASE TRACE (NEGATIVE); URINE NITRITE NEGATIVE (NEGATIVE); URINE PROTEIN NEGATIVE (NEGATIVE)
[2018-08-19 22:09] LABS: URINE BACTERIA 1+; URINE EPITHELIAL CELLS 0 - 2 (FEW); URINE RBC 0 - 2 (NONE SEEN)
[2018-08-19] MEDS ORDERED: CEPHALEXIN 500 MG CAPSULE PO STA (22:27)
== END 2018-08-19 22:44 | disposition home or self-care (01) ==
LOC: ER 19:38
DX: E87.6 Hypokalemia (principal); N39.0 Urinary tract infection, site not specified; R19.7 Diarrhea, unspecified; R11.0 Nausea; R53.1 Weakness; M54.2 Cervicalgia; G89.29 Other chronic pain; I10 Essential (primary) hypertension; J44.9 Chronic obstructive pulmonary disease, unspecified
CPT/HCPCS: 80053; 81001; 83690; 85027; 96374; 99284; J2405; J7030

== ENCOUNTER 2019-04-13 12:58 | Emergency (ER) | payer MEDICARE, BC ==
[2019-04-13 13:28] LABS: ABSOLUTE NEUTROPHIL COUNT 3.02; BASO % 0.9 % (0-6); EOS % 5.2 % (0-6); GRAN % 56.1 % (47-80); HEMATOCRIT 42.4 % (35.0-47.0); LYMPH % 29.6 % (16-45); MEAN CELL VOLUME 95.9 fl (81-97); MEAN CORPUSCULAR HEMOGLOBIN 29.4 pg (27-33); MEAN CORPUSCULAR HGB CONC 30.7 g/dl (32-36); MONO % 8.2 % (0-9); PLATELET COUNT 151 K/uL (130-400); RED BLOOD COUNT 4.42 M/uL (3.80-5.40); RED CELL DISTRIBUTION WIDTH 13.2 % (11.5-14.5); WHITE BLOOD COUNT W/O DIFF 5.4 K/uL (4.2-12.2)
[2019-04-13] MEDS ORDERED: CLONIDINE HCL 0.1 MG TABLET PO ONE (13:32)
[2019-04-13 13:39] LABS: BLOOD UREA NITROGEN 20 mg/dL (8-23); CREATININE 0.7 mg/dL (0.5-0.9); EST GLOMERULAR FILTRATION RATE > 60 mL/min
[2019-04-13 13:42] LABS: GLUCOSE,RANDOM 98 mg/dL (74-109)
[2019-04-13 13:47] LABS: CKMB 1.7 ng/mL (<3.77)
[2019-04-13 14:44] LABS: URINE APPEARANCE SL CLOUDY; URINE BILIRUBIN NEGATIVE (NEGATIVE); URINE BLOOD NEGATIVE (NEGATIVE); URINE COLOR YELLOW; URINE GLUCOSE (UA) NEGATIVE (NEGATIVE); URINE KETONE NEGATIVE (NEGATIVE); URINE LEUKOCYTE ESTERASE TRACE (NEGATIVE); URINE NITRITE NEGATIVE (NEGATIVE); URINE PROTEIN NEGATIVE (NEGATIVE); URINE UROBILINOGEN 0.2 E.U./dL (0.20 - 1.00)
[2019-04-13 14:52] LABS: URINE BACTERIA NONE SEEN; URINE EPITHELIAL CELLS 0 - 2 (FEW); URINE RBC NONE SEEN (NONE SEEN); URINE WBC NONE SEEN (0-2/hpf)
--- NOTE | 2019-04-13 15:18 | Emergency Department Record ---
History of Present Illness - General Chief Complaint: Hypertension Stated Complaint: HYPERTENSION Time Seen by Provider: 04/13/19 13:27 Source: Patient Mode of Arrival: Ambulatory Limitations: No limitations - History of Present Illness Initial Comments: pt came in for high bp and a headache. she states she has taken her meds as rxd Complaint: Other Onset/Timin -: Days(s) Timing: Gradual onset Description: Lightheadedness, Off-balance History of Same: Yes History of Trauma: No Improves With: Nothing Worsens With: Nothing - [place] Coma Scale Eye Response: (4) Open spontaneously Motor Response: (6) Obeys commands Verbal Response: (5) Oriented Ashley Total: 15 - Related Data Home Medications Medication Instructions Recorded Confirmed Last Taken Albuterol Sulfate [Proair Hfa] 1 - 2 puff IH .EVERY 4-6 HOURS PRN 04/13/19 04/13/19 1 Day Ago ~04/12/19 Previous Rx's Medication Instructions Recorded Gabapentin [Neurontin] 100 mg PO Q12HR #20 capsule 03/31/17 Allergies Allergy/AdvReac Type Severity Reaction Status Date / Time niacin Allergy Intermediate FLUSHING, Verified 04/13/19 13:11 HIVES doxycycline AdvReac Intermediate FLUSHING, Verified 04/13/19 13:11 HIVES ibuprofen AdvReac blood Verified 04/13/19 13:11 count drops Travel Screening - Travel/Exposure Within Last 30 Days Have you traveled within the last 30 days?: No - Travel/Exposure Within Last Year Have you traveled outside the [place] in the last year?: No - Additonal Travel Details Have you been exposed to anyone with a communicable illness?: No - Travel Symptoms Symptom Screening: None Review of Systems Reviewed: No additional complaints except as noted below Constitutional: Reports: As per HPI. Denies: Chills, Fever, Malaise, Night sweats, Weakness, Weight change Eyes: Reports: As per HPI. Denies: Eye discharge, Eye pain, Photophobia, Vision change ENT: Reports: As per HPI. Denies: Congestion, Dental pain, Ear pain, Epistaxis, Hearing loss, Throat pain Respiratory: Reports: As per HPI. Denies: Cough, Dyspnea, Hemoptysis, Stridor, Wheezes Cardiovascular: Reports: As per HPI. Denies: Arrhythmia, Chest pain, Dyspnea on exertion, Edema, Murmurs, Orthopnea, Palpitations, Paroxysmal nocturnal dyspnea, Rheumatic Fever, Syncope Endocrine: Reports: As per HPI. Denies: Fatigue, Heat or cold intolerance, Polydipsia, Polyuria Gastrointestinal: Reports: As per HPI. Denies: Abdominal pain, Constipation, Diarrhea, Hematemesis, Hematochezia, Melena, Nausea, Vomiting Genitourinary: Reports: As per HPI. Denies: Abnormal menses, Discharge, Dyspareunia, Dysuria, Frequency, Hematuria, Incontinence, Retention, Urgency Musculoskeletal: Reports: As per HPI. Denies: Arthralgia, Back pain, Gout, Joint swelling, Myalgia, Neck pain Skin: Reports: As per HPI. Denies: Bruising, Change in color, Change in hair/nails, Lesions, Pruritus, Rash Neurological: Reports: As per HPI, Headache. Denies: Abnormal gait, Confusion, Numbness, Paresthesias, Seizure, Tingling, Tremors, Vertigo, Weakness Psychiatric: Reports: As per HPI. Denies: Anxiety, Auditory hallucinations, Depression, Homicidal thoughts, Suicidal thoughts, Visual hallucinations Hematological/Lymphatic: Reports: As per HPI. Denies: Anemia, Blood Clots, Easy bleeding, Easy bruising, Swollen glands Past Medical History - SOCIAL HISTORY Smoking Status: Never smoker Alcohol Use: None Drug Use: None - RESPIRATORY Hx Respiratory Disorders: Yes Hx Asthma: Yes Hx COPD: Yes - CARDIOVASCULAR Hx Cardio Disorders: Yes Hx Deep Vein Thrombosis: Yes Hx Hypertension: Yes (on meds fair control) Comment:: high cholesterol. enlarged heart - NEURO Hx Neuro Disorders: Yes Hx Dizziness: Yes (occass) Hx Headaches: Yes (daily related neck problems) - GI Hx GI Disorders: Yes Hx Reflux: Yes - Hx Genitourinary Disorders: Yes Hx Bladder Problem: Yes (leaking wears a pad) Hx Renal Disease: Yes (SOME DEFICENCY HAS NOT BEEN REFERRED TO [employer] WORKING [employer]PER[employer]) - ENDOCRINE Hx Endocrine Disorders: No - MUSCULOSKELETAL Hx Musculoskeletal Disorders: Yes Hx Arthritis: Yes Hx Back Injury: Yes Hx Fibromyalgia: Yes - PSYCH Hx Psych Problems: Yes Hx Depression: Yes - HEMATOLOGY/ONCOLOGY Hx Hematology/Oncology Disorders: Yes Hx Bruising: Yes Hx Blood Transfusions: Yes Hx Blood Transfusion Reaction: No Family Medical History Any Significant Family History?: Yes Hx Alcohol Use: Father, Mother, Brother/Sister Hx Anxiety: Children Hx Cancer: Grandparents Hx Depression: Mother Hx Diabetes: Father Hx HTN: Father, Mother, Grandparents Hx Kidney Disease: Brother/Sister, Grandparents Hx Liver Disease: Mother Physical Exam - General General Appearance: Alert, Oriented x3, Cooperative, Mild distress - Head Head exam: Normal inspection - Eye Eye exam: Normal appearance, PERRL, EOMI Pupils: Normal accommodation - ENT ENT exam: Normal exam, Mucous membranes moist, Normal external ear exam, Normal orophraynx Ear exam: Normal external inspection. negative: External canal tenderness Nasal Exam: Normal inspection. negative: Discharge, Sinus tenderness Mouth exam: Normal external inspection, Tongue normal Teeth exam: Normal inspection. negative: Dental caries Throat exam: Normal inspection. negative: Tonsillar erythema, Tonsillar exudate - Neck Neck exam: Normal inspection, Full ROM. negative: Tenderness - Respiratory Respiratory exam: Normal lung sounds bilaterally. negative: Respiratory distress - Cardiovascular Cardiovascular Exam: Regular rate, Normal rhythm, Normal heart sounds - GI/Abdominal GI/Abdominal exam: Soft, Normal bowel sounds. negative: Tenderness - Rectal Rectal exam: Deferred - exam: Deferred - Extremities Extremities exam: Normal inspection, Full ROM, Normal capillary refill. negative: Tenderness - Back Back exam: Reports: Normal inspection, Full ROM. Denies: Muscle spasm, Rash noted, Tenderness - Neurological Neurological exam: Alert, CN II-XII intact, Normal gait, Oriented X3 - Psychiatric Psychiatric exam: Normal affect, Normal mood - Skin Skin exam: Dry, Intact, Normal color, Warm Course Vital Signs 04/13/19 04/13/19 04/13/19 12:59 13:38 14:11 Temperature 98.6 F Pulse Rate 90 Pulse Rate [ 82 [employer] ] Respiratory 18 17 Rate Blood Pressure 200/131 Blood Pressure 197/112 178/113 [Right Arm] Pulse Ox 97 04/13/19 14:39 Temperature Pulse Rate Pulse Rate [ [employer] ] Respiratory Rate Blood Pressure Blood Pressure 132/94 [Right Arm] Pulse Ox - Reevaluation(s) Reevaluation #1: 04/13/19 15:17 pts bp came down and cabrera went away Medical Decision Making - Lab Data Result diagrams: 04/13/19 13:16 04/13/19 13:16 Lab Results 04/13/19 04/13/19 04/13/19 Range/Units 13:16 13:16 14:15 WBC 5.4 (4.2-12.2) K/uL RBC 4.42 (3.80-5.40) M/uL Hgb 13.0 (11.6-16.0) gm/dl Hct 42.4 (35.0-47.0) % MCV 95.9 (81-97) fl MCH 29.4 (27-33) pg MCHC 30.7 L (32-36) g/dl RDW 13.2 (11.5-14.5) % Plt Count 151 (130-400) K/uL MPV 9.0 (7.4-10.4) fl Gran % 56.1 (47-80) % Lymphocytes % 29.6 (16-45) % Monocytes % 8.2 (0-9) % Eosinophils % 5.2 (0-6) % Basophils % 0.9 (0-6) % Absolute Neutrophils 3.02 Sodium 141 (136-145) mmol/L Potassium 4.0 (3.4-4.5) mmol/L Chloride 98 (98-107) mmol/L Carbon Dioxide 32.0 H (22-29) mmol/L Anion Gap 11.0 (7-16) BUN 20 (8-23) mg/dL Creatinine 0.7 (0.5-0.9) mg/dL Estimated GFR > 60 mL/min Random Glucose 98 (74-109) mg/dL Calcium 9.6 (8.8-10.2) mg/dL CK-MB (CK-2) 1.7 (<3.77) ng/mL Troponin T < 0.010 (0-0.010) ng/mL Urine Color Yellow Urine Appearance Sl cloudy Urine pH 8.0 (5.0-8.0) Ur Specific Premium 1.015 (1.002-1.030) Urine Protein Negative (NEGATIVE) Urine Glucose (UA) Negative (NEGATIVE) Urine Ketones Negative (NEGATIVE) Urine Blood Negative (NEGATIVE) Urine Nitrite Negative (NEGATIVE) Urine Bilirubin Negative (NEGATIVE) Urine Urobilinogen 0.2 (0.20 - 1.00) E.U./dL Ur Leukocyte Esterase Trace H (NEGATIVE) Urine RBC None seen (NONE SEEN) Urine WBC None seen (0-2/hpf) Ur Epithelial Cells 0 - 2 (FEW) Urine Bacteria None seen Disposition Disposition: Discharge Clinical Impression: Hypertension Qualifiers: Hypertension type: essential hypertension Qualified Code(s): I10 - Essential (primary) hypertension Disposition: Home, Self-Care Condition: (1) Good Instructions: Hypertension (ED) Additional Instructions: follow up with family doctor. return sooner if worse. take blood pressure daily Quality - Quality Measures Quality Measures: N/A - Blood Pressure Screening Does Patient Have Any of the Following: Active Dx of HTN Blood Pressure Classification: Hypertensive Reading Systolic Measurement: 200 Diastolic Measurement: 131 Screening for High Blood Pressure: Patient Exclusion, Hx of HTN [G9744]
== END 2019-04-13 15:23 | disposition home or self-care (01) ==
LOC: ER 12:58
DX: I10 Essential (primary) hypertension (principal); R51 Headache; R42 Dizziness and giddiness
CPT/HCPCS: 80048; 81001; 82553; 84484; 85025; 93005; 93010; 99284